=== PATIENT | female | born 1990 | race Caucasian/White ===

== ENCOUNTER 2018-02-27 18:02 | Emergency (ER) | payer OTHER, MEDICAID, SELFPAY ==
[2018-02-27 18:03] VITALS: BP 140/98; PULSE 101; RESP 20; TEMP 36.8; O2SAT 99; BMI 28.5
--- NOTE | 2018-02-27 19:02 | ED.DENTAL ---
HPI - Dental/Oral General Chief complaint: Dental/Oral Stated complaint: INFECTION IN TEETH,A LOT OF PAIN,PUKING NON STOP Time Seen by Provider: 02/27/18 18:32 Source: patient Mode of arrival: ambulatory Limitations: no limitations History of Present Illness HPI Narrative: 27-year-old female here for evaluation of dental pain. Saw her dentist 6 days ago for the dental pain and was placed on amoxicillin. Patient states that she told her dad that she was allergic to amoxicillin however it was a ???GI allergy ???and she states that her dentist told her to take it any ways. She states that she has been throwing up since she started taking the medicine. She says she has had something like this in the past and the last time she had to get ???IV antibiotics and IV Dilaudid ???. Complaint: tooth pain Location: Tooth # (4) Onset (ago): day(s) (6) Duration: constant Severity: severe Relieving factors: nothing Exacerbating factors: chewing, cold and drinking fluids Context: history of dental caries Associated symptoms: pain with swallowing, ear pain and sore throat Treatment prior to arrival: other (Amoxicillin provided by dentist 6 days ago) Related Data Previous Rx's Medication Instructions Recorded clindamycin HCl 300 mg PO QID 7 Days #28 cap 02/27/18 oxycodone-acetaminophen 1 tab PO Q4-6H PRN #7 tab 02/27/18 Allergies Allergy/AdvReac Type Severity Reaction Status Date / Time acetaminophen [From Vicodin] Allergy Verified 02/27/18 18:08 amoxicillin Allergy Verified 02/27/18 18:08 diphenhydramine Allergy Verified 02/27/18 18:08 [From Benadryl] droperidol Allergy Verified 02/27/18 18:08 haloperidol [From Haldol] Allergy Verified 02/27/18 18:08 hydrocodone [From Vicodin] Allergy Verified 02/27/18 18:08 latex Allergy Verified 02/27/18 18:08 Review of Systems Constitutional Denies chills, Denies fever(s), Reports headache(s), Denies lethargy and Denies weakness ENT Ears, Nose, Mouth, and Throat: Denies bleeding gums, Reports dental pain, Denies dysphagia, Denies vertigo, Denies dizziness, Reports headache(s), Denies lip swelling, Reports mouth pain, Denies nasal congestion, Denies nasal discharge, Denies nose pain, Reports sinus pain, Reports sinus pressure, Reports sore throat, Denies throat swelling and Denies tongue swelling Cardiovascular Denies chest pain, Denies irregular heart rhythm, Denies lightheadedness, Denies dyspnea and Denies dyspnea on exertion Respiratory Denies cough, Denies dyspnea, Denies dyspnea on exertion and Denies wheezing Gastrointestinal Gastrointestinal: Denies cramping, Denies dysphagia, Denies diarrhea, Reports nausea and Reports vomiting Integumentary/Breasts Denies pruritus, Denies erythema, Denies rash and Denies wounds Neurologic Denies vertigo, Denies dizziness, Reports headache(s) and Denies weakness Hematologic/Lymphatic Denies easy bruising Allergic/Immunologic Denies lip swelling, Denies throat swelling, Denies tongue swelling and Denies wheezing [facility] Medical History Degenerative disc disease (Acute) Diabetes 1.5, managed as type 2 (Acute) SVT (supraventricular tachycardia) (Acute) Social History Smoking Status: Current some day smoker Exam Initial Vital Signs Initial Vital Signs: Vital Signs Temperature 98.2 F 02/27/18 18:03 Pulse Rate 101 H 02/27/18 18:03 Respiratory Rate 20 02/27/18 18:03 Blood Pressure 140/98 H 02/27/18 18:03 Pulse Oximetry 99 02/27/18 18:03 Const General: cooperative and well developed Nutritional Appearance: well nourished Orientation: alert, awake, oriented x3 and not confused [facility] Head: normocephalic and atraumatic Ears: external ears normal and TM's normal bilaterally Nose: external nose normal and No nasal discharge Face and sinus: face symmetric and No dry mucous membranes Mouth: oral mucosae normal, moist mucous membranes and No drooling Teeth and gingiva: dentition normal Throat: tonsils normal and uvula midline Eyes Pupils: PERRL Neck Neck: No lymphadenopathy Skin General: no rashes or lesions noted, No jaundice and No petechiae Neuro General: alert, awake and oriented x3 Speech: speech normal Extrem General: full ROM, no clubbing, cyanosis or edema, no pedal edema and no calf tenderness Course Vital Signs - 8 hr 02/27/18 18:03 Temperature 98.2 F Pulse Rate 101 H Respiratory Rate 20 Blood Pressure 140/98 H Pulse Oximetry 99 MDM - Dental/Oral MDM Narrative Medical decision making narrative: Patient with a fracture #4. Tooth without signs of infection or drainable abscess here in the emergency department. Informed patient that she did need to follow up with her dentist for definitive treatment. Offered her an injection which she declined. Did place dental paste over the fractured tooth. Informed her that this was only a temporary measure for symptom control. Will switch her from amoxicillin to clindamycin. Will also send home with a few days of Percocet. She was given return precautions. She is going to call her dentist in the morning. Despite recorded allergies patient states that she can take Percocet. I did clarify this with her prior to discharge. Discharge Plan Departure Patient Disposition: Home, Self-Care Clinical Impression: Fracture of tooth Instructions: DI for Dental Pain Activity Restrictions/Additional Instructions: You need to contact your dentist tomorrow for a follow-up. Take all the medications as directed. Return to the emergency department for any new symptoms Prescriptions: New clindamycin HCl 300 mg capsule 300 mg PO QID 7 Days Qty: 28 RF: 0 oxycodone-acetaminophen 5-325 mg tablet 1 tab PO Q4-6H PRN (Reason: pain) Qty: 7 RF: 0
--- NOTE | 2018-02-27 19:08 | ED_ITS ---
HPI - Dental/Oral General Chief complaint: Dental/Oral Stated complaint: INFECTION IN TEETH,A LOT OF PAIN,PUKING NON STOP Time Seen by Provider: 02/27/18 18:32 Source: patient Mode of arrival: ambulatory Limitations: no limitations History of Present Illness HPI Narrative: 27-year-old female here for evaluation of dental pain. Saw her dentist 6 days ago for the dental pain and was placed on amoxicillin. Patient states that she told her dad that she was allergic to amoxicillin however it was a ?GI allergy ?and she states that her dentist told her to take it any ways. She states that she has been throwing up since she started taking the medicine. She says she has had something like this in the past and the last time she had to get ?IV antibiotics and IV Dilaudid ?. Complaint: tooth pain Location: Tooth # (4) Onset (ago): day(s) (6) Duration: constant Severity: severe Relieving factors: nothing Exacerbating factors: chewing, cold and drinking fluids Context: history of dental caries Associated symptoms: pain with swallowing, ear pain and sore throat Treatment prior to arrival: other (Amoxicillin provided by dentist 6 days ago) Related Data Previous Rx's Medication Instructions Recorded clindamycin HCl 300 mg PO QID 7 Days #28 cap 02/27/18 oxycodone-acetaminophen 1 tab PO Q4-6H PRN #7 tab 02/27/18 Allergies Allergy/AdvReac Type Severity Reaction Status Date / Time acetaminophen [From Vicodin] Allergy Verified 02/27/18 18:08 amoxicillin Allergy Verified 02/27/18 18:08 diphenhydramine Allergy Verified 02/27/18 18:08 [From Benadryl] droperidol Allergy Verified 02/27/18 18:08 haloperidol [From Haldol] Allergy Verified 02/27/18 18:08 hydrocodone [From Vicodin] Allergy Verified 02/27/18 18:08 latex Allergy Verified 02/27/18 18:08 Review of Systems Constitutional Denies chills, Denies fever(s), Reports headache(s), Denies lethargy and Denies weakness ENT Ears, Nose, Mouth, and Throat: Denies bleeding gums, Reports dental pain, Denies dysphagia, Denies vertigo, Denies dizziness, Reports headache(s), Denies lip swelling, Reports mouth pain, Denies nasal congestion, Denies nasal discharge, Denies nose pain, Reports sinus pain, Reports sinus pressure, Reports sore throat, Denies throat swelling and Denies tongue swelling Cardiovascular Denies chest pain, Denies irregular heart rhythm, Denies lightheadedness, Denies dyspnea and Denies dyspnea on exertion Respiratory Denies cough, Denies dyspnea, Denies dyspnea on exertion and Denies wheezing Gastrointestinal Gastrointestinal: Denies cramping, Denies dysphagia, Denies diarrhea, Reports nausea and Reports vomiting Integumentary/Breasts Denies pruritus, Denies erythema, Denies rash and Denies wounds Neurologic Denies vertigo, Denies dizziness, Reports headache(s) and Denies weakness Hematologic/Lymphatic Denies easy bruising Allergic/Immunologic Denies lip swelling, Denies throat swelling, Denies tongue swelling and Denies wheezing [facility] Medical History Degenerative disc disease (Acute) Diabetes 1.5, managed as type 2 (Acute) SVT (supraventricular tachycardia) (Acute) Social History Smoking Status: Current some day smoker Exam Initial Vital Signs Initial Vital Signs: Vital Signs Temperature 98.2 F 02/27/18 18:03 Pulse Rate 101 H 02/27/18 18:03 Respiratory Rate 20 02/27/18 18:03 Blood Pressure 140/98 H 02/27/18 18:03 Pulse Oximetry 99 02/27/18 18:03 Const General: cooperative and well developed Nutritional Appearance: well nourished Orientation: alert, awake, oriented x3 and not confused [facility] Head: normocephalic and atraumatic Ears: external ears normal and TM's normal bilaterally Nose: external nose normal and No nasal discharge Face and sinus: face symmetric and No dry mucous membranes Mouth: oral mucosae normal, moist mucous membranes and No drooling Teeth and gingiva: dentition normal Throat: tonsils normal and uvula midline Eyes Pupils: PERRL Neck Neck: No lymphadenopathy Skin General: no rashes or lesions noted, No jaundice and No petechiae Neuro General: alert, awake and oriented x3 Speech: speech normal Extrem General: full ROM, no clubbing, cyanosis or edema, no pedal edema and no calf tenderness Course Vital Signs - 8 hr 02/27/18 18:03 Temperature 98.2 F Pulse Rate 101 H Respiratory Rate 20 Blood Pressure 140/98 H Pulse Oximetry 99 MDM - Dental/Oral MDM Narrative Medical decision making narrative: Patient with a fracture #4. Tooth without signs of infection or drainable abscess here in the emergency department. Informed patient that she did need to follow up with her dentist for definitive treatment. Offered her an injection which she declined. Did place dental paste over the fractured tooth. Informed her that this was only a temporary measure for symptom control. Will switch her from amoxicillin to clindamycin. Will also send home with a few days of Percocet. She was given return precautions. She is going to call her dentist in the morning. Despite recorded allergies patient states that she can take Percocet. I did clarify this with her prior to discharge. Discharge Plan Departure Patient Disposition: Home, Self-Care Clinical Impression: Fracture of tooth Instructions: DI for Dental Pain Activity Restrictions/Additional Instructions: You need to contact your dentist tomorrow for a follow-up. Take all the medications as directed. Return to the emergency department for any new symptoms Prescriptions: New clindamycin HCl 300 mg capsule 300 mg PO QID 7 Days Qty: 28 RF: 0 oxycodone-acetaminophen 5-325 mg tablet 1 tab PO Q4-6H PRN (Reason: pain) Qty: 7 RF: 0
[2018-02-27 19:26] VITALS: BP 135/80; PULSE 95; RESP 20; O2SAT 99
== END 2018-02-27 19:26 | disposition home or self-care (01) ==
PROVIDERS: Emergency Provider Emergency Medicine; PCP Family Medicine
DX: S02.5XXA Fracture of tooth (traumatic), initial encounter for closed fracture (principal)
CPT/HCPCS: 99282